=== PATIENT | male | born 1995 | race Hispanic/Latino ===

== ENCOUNTER 2020-02-19 11:31 | Emergency (ER) | payer OTHER, SELFPAY ==
[2020-02-19] MEDS ORDERED: NA CHLORIDE 0.9% 1,000 ML ONE (12:06)
[2020-02-19] MEDS ORDERED: CEFTRIAXONE/SWI 1gm 1 GM/10 ML SYR ONE (12:06)
[2020-02-19] MEDS ORDERED: KETOROLAC 30 MG/ML INJ ONE (12:06)
[2020-02-19] MEDS ORDERED: AZITHROMYCIN 250 MG TAB ONE (12:06)
[2020-02-19 12:21] LABS: Absolute Lymphocytes (CBC) 1.4 K/uL (0.7-4.9); Basophils % 0.7 % (0-1.3); Hematocrit 45.2 % (39.6-49.0); RBC Red Blood Cell Count 5.12 M/uL (4.33-5.43)
[2020-02-19 12:24] LABS: ALT/SGPT 45 U/L (12-78); AST/SGOT 21 U/L (15-37); Albumin 3.4 g/dL (3.4-5.0); Alkaline Phosphatase 91 U/L (45-117); BUN Blood Urea Nitrogen 17 mg/dL (7-18); Bicarbonate 28 mmol/L (21-32); Bilirubin Total 0.6 mg/dL (0.2-1.0); Glucose Level 136 mg/dL (74-106); Potassium 3.7 mmol/L (3.5-5.1); Protein, Total 8.2 g/dL (6.4-8.2); Sodium Level 141 mmol/L (136-145)
--- NOTE | 2020-02-19 12:38 | EDPHYS ---
Physician Documentation [facility] Name: Zack Nielsen Jr Age: 24 yrs Sex: Male : 1995 Arrival Date: 02/19/2020 Time: 11:31 Bed 5 Private MD: ED Physician Arturo Tarango HPI: 02/18 11:52 This 24 yrs old Male presents to ER via Ambulatory with complaints of estela Testicular Swelling. 11:52 The patient presents with scrotal pain, of the left side, swelling, tenderness. Onset: estela The symptoms/episode began/occurred 3 day(s) ago. Modifying factors: The symptoms are alleviated by remaining still, the symptoms are aggravated by movement, pressure. Associated signs and symptoms: The patient has no apparent associated signs or symptoms. Severity of symptoms: At their worst the symptoms were moderate, in the emergency department the symptoms are actually worse. The patient has not experienced similar symptoms in the past. Historical: - Allergies: 11:42 No Known Allergies; ll1 - PMHx: 11:42 psoriasis; ll1 - PSHx: 11:42 None; ll1 - Immunization history:: Flu vaccine is not up to date. - Social history:: Smoking status: Reported history of juuling and/or vaping. Patient/guardian denies using IV drugs. - Family history:: not pertinent. ROS: 11:52 Constitutional: Negative for fever, chills, and weight loss, Eyes: Negative for injury, estela pain, redness, and discharge, ENT: Negative for injury, pain, and discharge, Neck: Negative for injury, pain, and swelling, Cardiovascular: Negative for chest pain, palpitations, and edema, Respiratory: Negative for shortness of breath, cough, wheezing, and pleuritic chest pain, Abdomen/GI: Negative for abdominal pain, nausea, vomiting, diarrhea, and constipation, Back: Negative for injury and pain, MS/Extremity: Negative for injury and deformity, Skin: Negative for injury, rash, and discoloration, Neuro: Negative for headache, weakness, numbness, tingling, and seizure, Psych: Negative for depression, anxiety, suicide ideation, homicidal ideation, and hallucinations, Allergy/Immunology: Negative for hives, rash, and allergies, Endocrine: Negative for neck swelling, polydipsia, polyuria, polyphagia, and marked weight changes, Hematologic/Lymphatic: Negative for swollen nodes, abnormal bleeding, and unusual bruising. 11:52 : Positive for burning with urination, testicular pain of the left testicle. Exam: 11:52 Constitutional: This is a well developed, well nourished patient who is awake, alert, estela and in no acute distress. Head/Face: Normocephalic, atraumatic. Eyes: Pupils equal round and reactive to light, extra-ocular motions intact. Lids and lashes normal. Conjunctiva and sclera are non-icteric and not injected. Cornea within normal limits. Periorbital areas with no swelling, redness, or edema. ENT: Nares patent. No nasal discharge, no septal abnormalities noted. Tympanic membranes are normal and external auditory canals are clear. Oropharynx with no redness, swelling, or masses, exudates, or evidence of obstruction, uvula midline. Mucous membranes moist. Neck: Trachea midline, no thyromegaly or masses palpated, and no cervical lymphadenopathy. Supple, full range of motion without nuchal rigidity, or vertebral point tenderness. No Meningismus. Chest/axilla: Normal chest wall appearance and motion. Nontender with no deformity. No lesions are appreciated. Cardiovascular: Regular rate and rhythm with a normal S1 and S2. No gallops, murmurs, or rubs. Normal PMI, no JVD. No pulse deficits. Respiratory: Lungs have equal breath sounds bilaterally, clear to auscultation and percussion. No rales, rhonchi or wheezes noted. No increased work of breathing, no retractions or nasal flaring. Abdomen/GI: Soft, non-tender, with normal bowel sounds. No distension or tympany. No guarding or rebound. No evidence of tenderness throughout. Back: No spinal tenderness. No costovertebral tenderness. Full range of motion. Skin: Warm, dry with normal turgor. Normal color with no rashes, no lesions, and no evidence of cellulitis. MS/ Extremity: Pulses equal, no cyanosis. Neurovascular intact. Full, normal range of motion. Neuro: Awake and alert, GCS 15, oriented to person, place, time, and situation. Cranial nerves II-XII grossly intact. Motor strength 5/5 in all extremities. Sensory grossly intact. Cerebellar exam normal. Normal gait. Psych: Awake, alert, with orientation to person, place and time. Behavior, mood, and affect are within normal limits. 11:52 : CVA tenderness, is absent, Male external genitalia: Circumcision noted. swelling: tenderness, of the left testicle is noted, Sexual behavior: not applicable. Vital Signs: 11:37 BP 147 / 101; Pulse 117; Resp 22; Temp 97.6; Pulse Ox 92% ; Weight 199.58 kg; Height 6 ll1 ft. 0 in. (182.88 cm); Pain 8/10; 12:06 BP 153 / 91; Pulse 102; Resp 20; Pulse Ox 95% on R/A; tw2 12:48 BP 147 / 94; Pulse 94; Resp 17; Pulse Ox 95% on R/A; tw2 11:37 Body Mass Index 59.67 (199.58 kg, 182.88 cm) ll1 MDM: 11:40 Patient medically screened. [facility] 11:58 Data reviewed: vital signs, nurses notes, lab test result(s), radiologic studies, [facility] ultrasound. 02/18 11:42 Order name: CBC with Diff; Complete Time: 12:36 [facility] 02/18 11:42 Order name: Comprehensive Metabolic Panel; Complete Time: 12:36 [facility] 02/18 11:42 Order name: US Scrotum Testicles [facility] 02/18 11:42 Order name: Urine Culture [facility] 02/18 12:56 Order name: Urine Dipstick--Ancillary (enter results) 02/18 11:42 Order name: Urine Dipstick-Ancillary (obtain specimen); Complete Time: 12:59 [facility] Administered Medications: 11:59 Drug: Zithromax 1 grams Route: PO; tw2 12:58 Follow up: Response: No adverse reaction tw2 12:00 Drug: TORadol 30 mg Route: IVP; Site: right hand; tw2 12:58 Follow up: Response: No adverse reaction; Pain is decreased tw2 12:00 Drug: Rocephin 1 grams Route: IV; Rate: per protocol; Site: right hand; tw2 12:05 Follow up: Response: No adverse reaction; IV Status: Completed infusion tw2 12:02 Drug: NS 0.9% 1000 ml Route: IV; Rate: 1 bolus; Site: right hand; tw2 12:59 Follow up: Response: No adverse reaction; IV Status: Completed infusion; IV Intake: tw2 1000ml 12:47 Drug: Cipro 500 mg Route: PO; tw2 12:58 Follow up: Response: No adverse reaction tw2 Disposition: 02/19/20 12:37 Discharged to Home. Impression: Epididymo-orchitis. - Condition is Stable. - Discharge Instructions: Epididymitis, Orchitis. - Prescriptions for Ibuprofen 600 mg Oral Tablet - take 1 tablet by ORAL route every 6 hours As needed take with food; 30 tablet. Tylenol- Codeine #3 300-30 mg Oral Tablet - take 2 tablets by ORAL route every 6 hours As needed; 26 tablet. Cipro 500 mg Oral Tablet - take 1 tablet by ORAL route every 12 hours for 10 days; 20 tablet. - Medication Reconciliation Form, Thank You Letter, Antibiotic Education, Prescription Opioid Use form. - Follow up: Private Physician; When: 2 - 3 days; Reason: Recheck today's complaints, Continuance of care, Re-evaluation by your physician. Follow up: Aung Moyer MD; When: 2 - 3 days; Reason: Recheck today's complaints, Continuance of care, Re-evaluation by your physician. - Problem is new. - Symptoms have improved. Signatures: Dispatcher [employer] EDArturo Flores MD MD cha Wise, Tara RN RN tw2 Flora Jesus RN RN ll1 Corrections: (The following items were deleted from the chart) 13:00 12:37 02/19/2020 12:37 Discharged to Home. Impression: Epididymo-orchitis. Condition is tw2 Stable. Forms are Medication Reconciliation Form, Thank You Letter, Antibiotic Education, Prescription Opioid Use. Follow up: Private Physician; When: 2 - 3 days; Reason: Recheck today's complaints, Continuance of care, Re-evaluation by your physician. Follow up: Aung Moyer; When: 2 - 3 days; Reason: Recheck today's complaints, Continuance of care, Re-evaluation by your physician. Problem is new. Symptoms have improved. estela
--- NOTE | 2020-02-19 12:38 | ER ---
Nurse's Notes [facility] Name: Zack Nielsen Jr Age: 24 yrs Sex: Male : 1995 Arrival Date: 02/19/2020 Time: 11:31 Bed 5 Private MD: Diagnosis: Epididymo-orchitis Presentation: 02/18 11:37 Chief complaint: Patient states: Left testicular pain and swelling for 4 days. No ll1 fever. Coronavirus screen: Client denies travel out of the [place] in the last 14 days. At this time, the client does not indicate any symptoms associated with coronavirus-19. Ebola Screen: Patient denies travel to an Ebola-affected area in the 21 days before illness onset. Initial Sepsis Screen: Does the patient meet any 2 criteria? RR > 20 per min. HR > 90 bpm. Risk Assessment: Do you want to hurt yourself or someone else? Patient reports no desire to harm self or others. Onset of symptoms was February 16, 2020. 11:37 Method Of Arrival: Ambulatory ll1 11:37 Acuity: PATRICIA 2 ll1 Historical: - Allergies: 11:42 No Known Allergies; ll1 - PMHx: 11:42 psoriasis; ll1 - PSHx: 11:42 None; ll1 - Immunization history:: Flu vaccine is not up to date. - Social history:: Smoking status: Reported history of juuling and/or vaping. Patient/guardian denies using IV drugs. - Family history:: not pertinent. Screenin:03 Abuse screen: Denies threats or abuse. Nutritional screening: No deficits noted. tw2 Tuberculosis screening: No symptoms or risk factors identified. Fall Risk None identified. Assessment: 12:04 General: Appears in no apparent distress. obese, Behavior is calm, cooperative, tw2 appropriate for age. Pain: Complains of pain in left testicle. Neuro: Level of Consciousness is awake, alert, obeys commands, Oriented to person, place, time, situation. Cardiovascular: Heart tones S1 S2 Patient's skin is warm and dry. Respiratory: Airway is patent Respiratory effort is even, unlabored, Respiratory pattern is regular, symmetrical, Breath sounds are clear bilaterally. GI: No signs and/or symptoms were reported involving the gastrointestinal system. Abdomen is round non-distended, obese, Bowel sounds present X 4 quads. : Reports left scrotal pain. EENT: No signs and/or symptoms were reported regarding the EENT system. Derm: No signs and/or symptoms reported regarding the dermatologic system. Musculoskeletal: Range of motion: intact in all extremities. 12:05 Reassessment: US at bedside at this time. tw2 12:49 Reassessment: Patient appears in no apparent distress at this time. No changes from tw2 previously documented assessment. Patient and/or family updated on plan of care and expected duration. Pain level reassessed. Patient is alert, oriented x 3, equal unlabored respirations, skin warm/dry/pink. 13:00 Reassessment: Patient appears in no apparent distress at this time. No changes from tw2 previously documented assessment. Patient and/or family updated on plan of care and expected duration. Pain level reassessed. Patient is alert, oriented x 3, equal unlabored respirations, skin warm/dry/pink. Vital Signs: 11:37 BP 147 / 101; Pulse 117; Resp 22; Temp 97.6; Pulse Ox 92% ; Weight 199.58 kg; Height 6 ll1 ft. 0 in. (182.88 cm); Pain 8/10; 12:06 BP 153 / 91; Pulse 102; Resp 20; Pulse Ox 95% on R/A; tw2 12:48 BP 147 / 94; Pulse 94; Resp 17; Pulse Ox 95% on R/A; tw2 11:37 Body Mass Index 59.67 (199.58 kg, 182.88 cm) ll1 ED Course: 11:31 Patient arrived in ED. ds1 11:39 Triage completed. ll1 11:39 Arm band placed on Patient placed in an exam room, on a stretcher. ll1 11:40 Arturo Tarango MD is Attending Physician. estela 11:50 Elidia Jett RN is Primary Nurse. tw2 12:00 CBC with Diff Sent. mh5 12:00 Comprehensive Metabolic Panel Sent. mh5 12:00 Initial lab(s) drawn, by me, sent to lab. Inserted saline lock: 22 gauge in right hand, mh5 using aseptic technique. Blood collected. 12:01 Patient has correct armband on for positive identification. Placed in gown. Bed in low mh5 position. Call light in reach. Side rails up X 1. Warm blanket given. Pulse ox on. NIBP on. 12:34 US Scrotum Testicles In Process Unspecified. EDMS 12:34 Ultrasound completed. Patient tolerated well. Notified ED Physician dorian. sg3 12:37 Aung Moyer MD is Referral Physician. [facility] 12:59 Urine Culture Sent. tw2 12:59 No provider procedures requiring assistance completed. IV discontinued, intact, tw2 bleeding controlled, No redness/swelling at site. Pressure dressing applied. Administered Medications: 11:59 Drug: Zithromax 1 grams Route: PO; tw2 12:58 Follow up: Response: No adverse reaction tw2 12:00 Drug: TORadol 30 mg Route: IVP; Site: right hand; tw2 12:58 Follow up: Response: No adverse reaction; Pain is decreased tw2 12:00 Drug: Rocephin 1 grams Route: IV; Rate: per protocol; Site: right hand; tw2 12:05 Follow up: Response: No adverse reaction; IV Status: Completed infusion tw2 12:02 Drug: NS 0.9% 1000 ml Route: IV; Rate: 1 bolus; Site: right hand; tw2 12:59 Follow up: Response: No adverse reaction; IV Status: Completed infusion; IV Intake: tw2 1000ml 12:47 Drug: Cipro 500 mg Route: PO; tw2 12:58 Follow up: Response: No adverse reaction tw2 Intake: 12:59 IV: 1000ml; Total: 1000ml. tw2 Outcome: 12:37 Discharge ordered by . [facility] 12:59 Discharged to home ambulatory. tw2 12:59 Condition: stable 12:59 Discharge instructions given to patient, Instructed on discharge instructions, follow up and referral plans. no drinking with medication, no driving heavy equipment, medication usage, Demonstrated understanding of instructions, follow-up care, medications, Prescriptions given X 3. 13:00 Patient left the ED. tw2 Signatures: Dispatcher [employer] EDMS Arturo Tarango MD MD cha Sanford, Demi ds1 Elidia Jett RN RN tw2 Laly Lr [facility] Mignon Low sg3 Flora Jesus RN RN ll1
[2020-02-19] MEDS ORDERED: CIPROFLOXACIN HCL 500 MG TAB ONE (13:00)
[2020-02-19 13:09] VITALS: TEMP 97.6
[2020-02-19 13:11] VITALS: O2SAT 95
[2020-02-19 13:12] VITALS: BP 147/94
[2020-02-19 13:15] LABS: Urine Blood TRACE (NEG); Urine Glucose NEGATIVE (NEG); Urine Protein 1+ (NEG); Urine Specific Gravity 1.025 (1.005-1.030); Urine pH 5.5 (5.0-7.0)
--- NOTE | 2020-02-19 13:17 | RAD REPORT ---
EXAM DESCRIPTION: US - Scrotum Testicles - 02/19/2020 12:36 pm CLINICAL HISTORY: PAIN Preliminary findings provided at the time of the study. COMPARISON: No comparisons FINDINGS: Left testicle is somewhat heterogeneous when compared to the right but a discrete or focal left testicular mass is not identifiable. No focal lesion of the right testicle. Doppler evaluation shows increased flow to the left testicle relative to the right. The left epididymis is enlarged and hyperemic relative to the right. A few incidental small epididymal cysts are present. Patient has hydrocele with numerous echogenic strands extending through the fluid. No abscess or drai nable fluid collections seen. Scrotal wall appears thickened and edematous. IMPRESSION: Left epididymo-orchitis pattern is evident with no focal lesion of the testicle seen. Loculated left side hydrocele.
== END 2020-02-19 13:00 | disposition home or self-care (01) ==
LOC: ER 11:31
DX: N45.3 Epididymo-orchitis (principal)
CPT/HCPCS: 36415; 76870; 80053; 81003; 85025; 87086; 87088; 96361; 96374; 96375; 99284; J0696; J7030

== ENCOUNTER 2021-03-24 22:52 | Inpatient (IN) | payer SELFPAY ==
[2021-03-24 23:57] LABS: Absolute Lymphocytes (CBC) 0.9 K/uL (0.7-4.9); Basophils % 0.3 % (0-1.3); Hematocrit 47.3 % (39.6-49.0); Lymphocytes % 6.9 % (15.3-44.8); MPV 8.5 fL (7.6-11.3); RBC Red Blood Cell Count 5.35 M/uL (4.33-5.43)
[2021-03-24 23:59] LABS: Protime INR 1.25
[2021-03-25 00:16] LABS: ALT/SGPT 48 U/L (12-78); AST/SGOT 19 U/L (15-37); Albumin 3.6 g/dL (3.4-5.0); Alkaline Phosphatase 82 U/L (45-117); Amylase 19 U/L (25-115); BUN Blood Urea Nitrogen 14 mg/dL (7-18); Bicarbonate 25 mmol/L (21-32); Bilirubin Direct 0.2 mg/dL (0-0.2); Bilirubin Total 0.8 mg/dL (0.2-1.0); Creatine Phosphokinase 73 U/L (39-308); Glucose Level 156 mg/dL (74-106); Lipase 52 U/L (73-393); Potassium 3.5 mmol/L (3.5-5.1); Protein, Total 8.1 g/dL (6.4-8.2); Sodium Level 137 mmol/L (136-145); Troponin (Emerg Dept Use Only) < 0.02 ng/mL (0.0-0.045)
[2021-03-25] MEDS ORDERED: ACETAMINOPHEN 500 MG TAB ONE (00:16)
[2021-03-25] MEDS ORDERED: MORPHINE 4 MG/ML SYR ONE (00:17)
[2021-03-25] MEDS ORDERED: ONDANSETRON 4 MG/2 ML VIAL ONE (00:17)
[2021-03-25] MEDS ORDERED: NA CHLORIDE 0.9% 1,000 ML ONE ×3 (00:17→05:45)
[2021-03-25] MEDS ORDERED: CLINDAMYCIN 900MG/D5W 900 MG/50 ML IVPB IV ONE (00:17)
[2021-03-25 00:23] LABS: CKMB Creatine Kinase MB < 1.0 ng/mL (1.0-3.6)
--- NOTE | 2021-03-25 00:52 | ER ---
Nurse's Notes [facility] Name: Zack Nielsen Jr Age: 25 yrs Sex: Male : 1995 Arrival Date: 03/24/2021 Time: 22:57 Bed 23 Private MD: Diagnosis: Right lower extremity cellulitis, sepsis Presentation: 03/24 23:07 Chief complaint: Patient states: redness, swelling to right lower leg x 2 days, reports lp1 pain to right groin x 2 days;. Coronavirus screen: congestion, fatigue, fever, shortness of breath. Ebola Screen: No symptoms or risks identified at this time. Initial Sepsis Screen: Does the patient meet any 2 criteria? Temp <36.0*C (96.8*F)) or > 38.3*C (100.9*F). HR > 90 bpm. Does the patient have a suspected source of infection? Yes: Other: unknown. Risk Assessment: Do you want to hurt yourself or someone else? Patient reports no desire to harm self or others. Onset of symptoms was March 24, 2021. 23:07 Method Of Arrival: Ambulatory lp1 23:07 Acuity: PATRICIA 2 lp1 Triage Assessment: 23:35 Bite description: bite sustained to right leg by possible spider. General: Appears in sj1 no apparent distress. Behavior is calm, cooperative, appropriate for age. 23:36 Bite description: animal information: vaccination(s) is not applicable. sj1 Historical: - Allergies: 23:10 No Known Allergies; lp1 - Home Meds: 23:11 talze [Active]; lp1 - PMHx: 23:10 psoriasis; lp1 23:11 Hypertensive disorder; lp1 - PSHx: 23:10 None; lp1 - Immunization history:: Adult Immunizations up to date, Client reports having NOT received the Covid vaccine. - Social history:: Smoking status: Patient reports the use of cigarette tobacco products, denies chronic smoking, but will smoke occasionally. Screenin:10 Abuse screen: Denies threats or abuse. Denies injuries from another. Nutritional lp1 screening: No deficits noted. Tuberculosis screening: No symptoms or risk factors identified. Fall Risk None identified. Assessment: 23:48 Pain: Complains of pain in rt leg and gen body aches. Derm: Skin is redness to rt lower sj1 ext. 03/25 03:13 Neuro: No deficits noted. Cardiovascular: No deficits noted. Respiratory: No deficits sj1 noted. GI: No deficits noted. Derm: Skin is intact, Skin is. Musculoskeletal: Reports gen body aches. Vital Signs: 03/24 23:07 BP 156 / 75; Pulse 143; Resp 20; Temp 102.3(O); Pulse Ox 99% on R/A; Weight 226.8 kg lp1 (R); Height 6 ft. 0 in. (182.88 cm); Pain 3/10; 03/25 00:25 BP 160 / 99 RA Sitting (/lg); Pulse 122; Resp 18 S; Pulse Ox 94% on R/A; Pain 3/10; sj1 01:10 BP 141 / 68 LA Sitting (auto/lg); Pulse 101; Resp 18 S; Temp 99.3(O); Pulse Ox 96% on sj1 R/A; Pain 0/10; 03/24 23:07 Body Mass Index 67.81 (226.80 kg, 182.88 cm) lp1 ED Course: 03/24 22:57 Patient arrived in ED. ja2 23:10 Triage completed. lp1 23:10 Arm band placed on right wrist. lp1 23:15 Jesus Cutler MD is Attending Physician. 7 23:31 Amylase, Serum Sent. sj1 23:31 Basic Metabolic Panel Sent. sj1 23:31 Blood Culture Adult (2) Sent. sj1 23:31 CBC with Diff Sent. sj1 23:31 CPK Sent. sj1 23:31 Ckmb Sent. sj1 23:31 LFT's Sent. sj1 23:31 Lactate Sent. sj1 23:31 Lipase Sent. sj1 23:31 Procalcitonin Sent. sj1 23:31 Protime (+inr) Sent. sj1 23:31 Ptt, Activated Sent. sj1 23:31 Troponin (emerg Dept Use Only) Sent. sj1 23:48 Chest Single View XRAY In Process Unspecified. EDMS 23:48 Chest Single View XRAY Sent. sj1 23:48 No provider procedures requiring assistance completed. Inserted saline lock: 20 gauge sj1 in right hand, using aseptic technique. Blood collected. 03/25 00:11 Extremity Venous Unilateral Ltd Sent. sj1 00:26 Patient has correct armband on for positive identification. sj1 00:51 Michele Church DO is Hospitalizing Provider. mh7 01:39 Influenza Screen (a \T\ B) Sent. sj1 Administered Medications: 00:09 Drug: morphine 4 mg Route: IVP; Site: right hand; sj1 05:42 Follow up: Response: No adverse reaction sj1 00:09 Drug: Zofran (Ondansetron) 4 mg Route: IVP; Site: right hand; sj1 05:41 Follow up: Response: No adverse reaction sj1 00:09 Drug: Clindamycin 900 mg Route: IVPB; Infused Over: 30 mins; Site: right hand; sj1 00:44 Follow up: Response: No adverse reaction sj1 00:09 Drug: NS 0.9% 1000 ml Route: IV; Rate: 1000 ml; Site: right hand; sj1 01:39 Follow up: IV Status: Completed infusion; IV Intake: 1000ml sj1 00:10 Drug: Tylenol 1000 mg Route: PO; sj1 01:11 Follow up: Response: No adverse reaction; Temperature is decreased sj1 01:00 Drug: Cefepime 1 grams Route: IVPB; Rate: 200 ml/hr; Infused Over: 30 mins; Site: right sj1 hand; 01:39 Follow up: IV Status: Completed infusion; IV Intake: 100ml sj1 01:00 Drug: NS 0.9% 1000 ml Route: IV; Rate: 1000 ml; Site: right hand; sj1 01:45 Drug: vancoMYCIN 2 grams Route: IVPB; Rate: calculated rate; Site: right hand; sj1 05:41 Follow up: IV Status: Completed infusion; IV Intake: 500ml sj1 Intake: 01:39 IV: 100ml; Total: 100ml. sj1 01:39 IV: 1000ml; Total: 1100ml. sj1 05:41 IV: 500ml; Total: 1600ml. sj1 Outcome: 00:51 Decision to Hospitalize by Provider. 7 14:01 Patient left the ED. aa5 Signatures: Dispatcher [employer] EDMS Kaye Madison RN RN aa5 Annie Jacome RN RN lp1 Jesus Cutler MD MD 7 Eileen Chino Sade, RN RN sj1 Corrections: (The following items were deleted from the chart) 03/24 23:11 23:10 [place] Meds: None; lp1 lp1
--- NOTE | 2021-03-25 00:52 | EDPHYS ---
Physician Documentation [facility] Name: Zack Nielsen Jr Age: 25 yrs Sex: Male : 1995 Arrival Date: 03/24/2021 Time: 22:57 Bed 23 Private MD: ED Physician Jesus Cutler HPI: 03/24 23:30 This 25 yrs old Male presents to ER via Ambulatory with complaints of Insect mh7 Bite. 23:30 The patient presents with a bite, by an insect, pain, that is acute, swelling. The mh7 complaints affect the right leg. Context: The problem was sustained at an unknown site, resulted from Possible insect bite, the patient can fully bear weight, the patient is able to ambulate, with mild difficulty. Onset: The symptoms/episode began/occurred 2 day(s) ago. Modifying factors: The symptoms are alleviated by nothing. the symptoms are aggravated by movement, weight bearing. Associated signs and symptoms: Pertinent positives: fever, warmth, Pertinent negatives nausea, numbness, rash, tingling, vomiting, weakness. Treatment prior to arrival includes: no previous treatment. Severity of symptoms: At their worst the symptoms were moderate, 2 day(s) ago, in the emergency department the symptoms are unchanged. Historical: - Allergies: 23:10 No Known Allergies; lp1 - Home Meds: 23:11 talze [Active]; lp1 - PMHx: 23:10 psoriasis; lp1 23:11 Hypertensive disorder; lp1 - PSHx: 23:10 None; lp1 - Immunization history:: Adult Immunizations up to date, Client reports having NOT received the Covid vaccine. - Social history:: Smoking status: Patient reports the use of cigarette tobacco products, denies chronic smoking, but will smoke occasionally. ROS: 23:30 Eyes: Negative for injury, pain, redness, and discharge, ENT: Negative for injury, mh7 pain, and discharge, Neck: Negative for injury, pain, and swelling, Cardiovascular: Negative for chest pain, palpitations, and edema, Abdomen/GI: Negative for abdominal pain, nausea, vomiting, diarrhea, and constipation. 23:30 Back: Negative for injury and pain, : Negative for injury, bleeding, discharge, and swelling, Neuro: Negative for headache, weakness, numbness, tingling, and seizure, Psych: Negative for depression, anxiety, suicide ideation, homicidal ideation, and hallucinations, Allergy/Immunology: Negative for hives, rash, and allergies, Endocrine: Negative for neck swelling, polydipsia, polyuria, polyphagia, and marked weight changes, Hematologic/Lymphatic: Negative for swollen nodes, abnormal bleeding, and unusual bruising. Exam: 23:30 Constitutional: This is a well developed, well nourished patient who is awake, alert, mh7 and in no acute distress. Head/Face: Normocephalic, atraumatic. Eyes: Pupils equal round and reactive to light, extra-ocular motions intact. Lids and lashes normal. Conjunctiva and sclera are non-icteric and not injected. Cornea within normal limits. Periorbital areas with no swelling, redness, or edema. Neck: Trachea midline, no thyromegaly or masses palpated, and no cervical lymphadenopathy. Supple, full range of motion without nuchal rigidity, or vertebral point tenderness. No Meningismus. Chest/axilla: Normal chest wall appearance and motion. Nontender with no deformity. No lesions are appreciated. 23:30 Respiratory: Lungs have equal breath sounds bilaterally, clear to auscultation and percussion. No rales, rhonchi or wheezes noted. No increased work of breathing, no retractions or nasal flaring. Abdomen/GI: Soft, non-tender, with normal bowel sounds. No distension or tympany. No guarding or rebound. No evidence of tenderness throughout. Back: No spinal tenderness. No costovertebral tenderness. Full range of motion. Neuro: Awake and alert, GCS 15, oriented to person, place, time, and situation. Cranial nerves II-XII grossly intact. Motor strength 5/5 in all extremities. Sensory grossly intact. Cerebellar exam normal. Normal gait. Psych: Awake, alert, with orientation to person, place and time. Behavior, mood, and affect are within normal limits. 23:30 Cardiovascular: Rate: tachycardic, Rhythm: regular, Pulses: no pulse deficits are appreciated, Heart sounds: normal, normal S1and S2, Edema: is not appreciated, JVD: is not appreciated. 23:30 Musculoskeletal/extremity: Extremities: noted in the right leg: erythema, pain, mh7 tenderness, ROM: intact in all extremities, Circulation is intact in all extremities. Sensation intact. Compartment Syndrome exam of affected extremity: is normal. no numbness, no tingling, no sensation deficit, no palor, no weak pulses, Joints: All joints appear normal with full range of motion. Weight bearing: able to fully bear weight, Tendon exam: specific tendon testing normal through active and passive range of motion DVT Exam: pain, that is mild, of the right leg, tenderness, that is mild, of the right leg, erythema, that is moderate, of the right leg, increased warmth, that is moderate, of the right leg. 23:30 Skin: cellulitis, that is moderate, confluent, on the right leg. [facility] Vital Signs: 23:07 BP 156 / 75; Pulse 143; Resp 20; Temp 102.3(O); Pulse Ox 99% on R/A; Weight 226.8 kg lp1 (R); Height 6 ft. 0 in. (182.88 cm); Pain 3/10; 03/25 00:25 BP 160 / 99 RA Sitting (/lg); Pulse 122; Resp 18 S; Pulse Ox 94% on R/A; Pain 3/10; sj1 01:10 BP 141 / 68 LA Sitting (auto/lg); Pulse 101; Resp 18 S; Temp 99.3(O); Pulse Ox 96% on sj1 R/A; Pain 0/10; 03/24 23:07 Body Mass Index 67.81 (226.80 kg, 182.88 cm) 1 MDM: 00:50 Differential diagnosis: contusion, abrasion, tendonitis, Cellulitis, insect bite, DVT. [facility] Data reviewed: vital signs, nurses notes, lab test result(s), CBC, electrolytes, EKG, radiologic studies, plain films, ultrasound. Data interpreted: Pulse oximetry: on room air is 94 %. Interpretation: normal. Counseling: I had a detailed discussion with the patient and/or guardian regarding: the historical points, exam findings, and any diagnostic results supporting the discharge/admit diagnosis, the presence of at least one elevated blood pressure reading (>120/80) during this emergency department visit, lab results, radiology results, the need for further work-up and treatment in the hospital. Response to treatment: the patient's symptoms have mildly improved after treatment. 00:51 Patient medically screened. [facility] 03/24 23:20 Order name: Amylase, Serum lp1 10/16 23:20 Order name: Basic Metabolic Panel; Complete Time: 00:26 [facility] 03/24 23:20 Order name: Blood Culture Adult (2) [facility] 03/24 23:20 Order name: CBC with Diff; Complete Time: 00:26 [facility] 03/24 23:20 Order name: CPK; Complete Time: 00:26 [facility] 03/24 23:20 Order name: Ckmb; Complete Time: 00:26 [facility] 03/24 23:20 Order name: LFT's; Complete Time: 00:26 [facility] 03/24 23:20 Order name: Lactate; Complete Time: 00:26 [facility] 03/24 23:20 Order name: Lipase; Complete Time: 00:26 [facility] 03/24 23:20 Order name: Procalcitonin; Complete Time: 02:07 [facility] 03/24 23:20 Order name: Protime (+inr); Complete Time: 00:26 [facility] 03/24 23:20 Order name: Ptt, Activated; Complete Time: 00:26 [facility] 03/24 23:20 Order name: Troponin (emerg Dept Use Only); Complete Time: 00:26 [facility] 03/24 23:20 Order name: Urine Microscopic Only [facility] 03/24 23:20 Order name: Chest Single View XRAY [facility] 03/24 23:20 Order name: Amylase; Complete Time: 00:26 [facility] 03/24 23:38 Order name: Influenza Screen (a \T\ B); Complete Time: 02:07 [facility] 03/24 23:38 Order name: US Extremity Venous Unilateral Ltd [facility] 03/24 23:51 Order name: SARS-COV-2 RT PCR; Complete Time: 00:49 [facility] 03/24 23:51 Order name: Glucose, Ancillary Testing; Complete Time: 02:07 [facility] 03/25 02:22 Order name: Group A Streptococcus Rapid Sc; Complete Time: 02:37 [facility] 03/25 06:25 Order name: CBC with Automated Diff [facility] 03/25 07:02 Order name: Hemoglobin A1c [facility] 03/25 07:14 Order name: Comprehensive Metabolic Panel [facility] 03/25 07:14 Order name: Lipid Profile [facility] 03/25 07:14 Order name: T4 Free [facility] 03/25 07:14 Order name: Thyroid Stimulating Hormone [facility] 03/25 07:48 Order name: Procalcitonin [facility] 03/24 23:20 Order name: Accucheck; Complete Time: 23:47 [facility] 03/24 23:20 Order name: Cardiac monitoring; Complete Time: 23:31 [facility] 03/24 23:20 Order name: EKG - Nurse/Tech; Complete Time: 23:31 [facility] 03/24 23:20 Order name: IV Saline Lock - Large Bore; Complete Time: 23:31 [facility] 03/24 23:20 Order name: Labs collected and sent; Complete Time: 23:31 1 03/24 23:20 Order name: O2 Per Protocol; Complete Time: 23:31 [facility] 03/24 23:20 Order name: O2 Sat Monitoring; Complete Time: 23:31 [facility] 03/25 09:39 Order name: US [facility] Administered Medications: 00:09 Drug: morphine 4 mg Route: IVP; Site: right hand; sj1 05:42 Follow up: Response: No adverse reaction sj1 00:09 Drug: Zofran (Ondansetron) 4 mg Route: IVP; Site: right hand; sj1 05:41 Follow up: Response: No adverse reaction sj1 00:09 Drug: Clindamycin 900 mg Route: IVPB; Infused Over: 30 mins; Site: right hand; sj1 00:44 Follow up: Response: No adverse reaction sj1 00:09 Drug: NS 0.9% 1000 ml Route: IV; Rate: 1000 ml; Site: right hand; sj1 01:39 Follow up: IV Status: Completed infusion; IV Intake: 1000ml sj1 00:10 Drug: Tylenol 1000 mg Route: PO; sj1 01:11 Follow up: Response: No adverse reaction; Temperature is decreased sj1 01:00 Drug: Cefepime 1 grams Route: IVPB; Rate: 200 ml/hr; Infused Over: 30 mins; Site: right sj1 hand; 01:39 Follow up: IV Status: Completed infusion; IV Intake: 100ml sj1 01:00 Drug: NS 0.9% 1000 ml Route: IV; Rate: 1000 ml; Site: right hand; sj1 01:45 Drug: vancoMYCIN 2 grams Route: IVPB; Rate: calculated rate; Site: right hand; sj1 05:41 Follow up: IV Status: Completed infusion; IV Intake: 500ml 1 Disposition Summary: 03/25/21 00:51 Hospitalization Ordered Hospitalization Status: Inpatient Admission [facility] Provider: Michele Church Condition: Stable [facility] Problem: new mh7 Symptoms: have improved mh7 Bed/Room Type: Standard [facility] Location: Telemetry/MedSurg (Inpatient)(03/25/21 12:49) [facility] Room Assignment: 424(03/25/21 13:28) eb Diagnosis - Right lower extremity cellulitis, sepsis [facility] Forms: - Medication Reconciliation Form 7 - SBAR form [facility] Signatures: Dispatcher [employer] EDMS Annie Jacome, RN RN lp1 See Lou, COMPUTER SYSTEMS ANALYST-C COMPUTER SYSTEMS ANALYST-Cla1 Kassy Seals, RN RN Peter Santamaria RN RN ja1 Barbara Rasheed Maurice, MD MD 7 Carolin Bird RN RN sj1 Corrections: (The following items were deleted from the chart) 03/24 23:11 23:10 Home Meds: None; 1 lp1 23:51 23:34 CORONAVIRUS+MR.LAB.BRZ ordered. [facility] ED[facility] 03/25 00:56 00:51 Telemetry/MedSurg (Inpatient) mh7 cg 00:56 00:51 mh7 cg 12:21 00:56 [facility] ER HOLD cg ja1 12:21 00:56 ERHOLD- cg ja1 12:49 12:21 Intensive Care Unit ja1 ja1 12:49 12:21 8- ja1 ja1 13:28 12:49 ja1 eb
--- NOTE | 2021-03-25 00:53 | P.HP ---
Certification for Inpatient Patient admitted to: Inpatient With expected LOS: >2 Midnights Patient will require the following post-hospital care: None Practitioner: I am a practitioner with admitting privileges, knowledge of patient current condition, hospital course, and medical plan of care. Services: Services provided to patient in accordance with Admission requirements found in Title 42 Section 412.3 of the Code of Federal Regulations Patient History Date of Service: 03/25/21 Primary Care Provider: Unknown Reason for admission: Cellulitis right lower extremity History of Present Illness: 25-year-old male with history of hypertension, morbid obesity presents emergency department for right lower extremity redness, fever. Patient reports symptoms began 2 days ago, does have a history of psoriasis as well. Patient is on immunologic therapy for psoriasis. Patient was evaluated in the emergency department labs were significant for white blood cell count 13.2 with left shift glucose 156 Covid negative DVT negative right lower extremity. Patient with significant cellulitis, tachycardia, fever and on immunologic therapy, will admit for further evaluation and management. - Past Medical/Surgical History -: Morbid obesity -: Psoriasis -: Hypertension -: None Psychosocial/ Personal History: Unemployed, lives at home with his parents - Family History Mother -: Hypertension Father -: Hypertension, Diabetes - Social History Smoking Status: Never smoker Alcohol use: Yes CD- Drugs: No Caffeine use: Yes Place of Residence: Home Review of Systems General: Fever, Chills, Weakness, Malaise Musculoskeletal: Leg Pain Integumentary: Other (Erythema, cellulitis right lower extremity), As per HPI Physical Examination - Physical Exam General: Alert, In no apparent distress, Oriented x3, Obese HEENT: Atraumatic Neck: Supple Respiratory: Clear to auscultation bilaterally Cardiovascular: No edema, Normal S1 S2, Irregular heart rate/rhythm (Sinus tachycardia rate 120) Capillary refill: <2 Seconds Gastrointestinal: Normal bowel sounds, Soft and benign Integumentary: Tenderness/swelling, Erythema, Warmth Neurological: Normal speech, Normal strength at 5/5 x4 extr, Normal tone - Studies Laboratory Data (last 24 hrs) 03/24/21 23:26: PT 14.4 H, INR 1.25, APTT 33.6 03/24/21 23:26: WBC 13.20 H, Hgb 15.7, Hct 47.3, Plt Count 255 10/16/21 23:26: Sodium 137, Potassium 3.5, BUN 14, Creatinine 1.08, Glucose 156 H, Total Bilirubin 0.8, AST 19, ALT 48, Alkaline Phosphatase 82, Amylase 19 L, Lipase 52 L Assessment and Plan - Plan Assessment: Sepsis without severe sepsis or septic shock secondary to cellulitis of the right lower extremity complicated with history of psoriasis on biologic therapy Hypertension Hyperglycemia Plan: Sepsis without severe sepsis or septic shock secondary to cellulitis of the right lower extremity complicated with history of psoriasis on biologic therapy: Continue with vancomycin, Levaquin, IV fluids. Negative for DVT and has been clinical improvement over the course of the next 48 to 72 hours. Hypertension: Initiated therapy with lisinopril 10 mg daily, titrate as needed to control blood pressure. Patient need to follow-up with primary care doctor to further address. Hyperglycemia: Strong family history of diabetes, blood sugar mildly elevated will obtain A1c level. DVT PPX: Lovenox Code status: Full Discharge Plan: Home Plan to discharge in: Greater than 2 days - Advance Directives Does patient have a Living Will: No Does patient have a Durable POA for Healthcare: No - Code Status/Comfort Care Code Status Assessed: Yes (Full code) Critical Care: No Time Spent Managing Pts Care (In Minutes): 55
[2021-03-25] MEDS ORDERED: CEFEPIME 1 GM/VIAL ONE (01:19)
[2021-03-25] MEDS ORDERED: NA CHLORIDE 0.9% 100 ML ONE (01:19)
[2021-03-25] MEDS ORDERED: NA CHLORIDE 0.9% 500 ML ONE (01:19)
[2021-03-25] MEDS ORDERED: VANCOMYCIN 1 GM/VIAL ONE (01:19)
--- NOTE | 2021-03-25 02:15 | P.INFCA ---
Sepsis Focused Assessment - Focused Assessment Complete? Sepsis Focused Assessment Completed?: Yes - Sepsis Screen Result Severe Sepsis: Negative Septic Shock: Negative - Evaluation Current stage of sepsis: Resolved - Vital Signs Reviewed: Yes Temperature: 99 F Heart rate: 110 Blood Pressure: 145/90 Respiratory Rate: 18 O2 Sat by Pulse Oximetry: 100 - Examination Date exam was performed: 03/25/21 Time exam was performed: 02:14 Heart: S1, S2, Tachycardia Lungs: Clear bilaterally Peripheral pulses: 3+ Normal Peripheral pulse location: Radial Capillary refill: <2 Seconds Skin examination: Normal turgor
[2021-03-25 03:13] VITALS: BMI 67.8
[2021-03-25] MEDS ORDERED: VANCOMYCIN/NS 1 gm 1 GM/250 ML BAG IVPB SCH (04:58)
[2021-03-25] MEDS ORDERED: ACETAMINOPHEN 500 MG TAB PO PRN (04:58)
[2021-03-25] MEDS ORDERED: ONDANSETRON 4 MG/2 ML VIAL IV PRN (04:58)
[2021-03-25] MEDS: NA CHLORIDE 0.9% 1,000 ML IV SCH ×2 (04:58→15:11)
[2021-03-25] MEDS ORDERED: Levofloxacin500mg IV 500 MG/100 ML BAG IV SCH (05:00)
[2021-03-25] MEDS ORDERED: Levofloxacin500mg IV 500 MG/100 ML BAG IV ONE (05:45)
--- NOTE | 2021-03-25 06:16 | P.PN ---
Subjective Date of Service: 03/25/21 Primary Care Provider: Unknown Chief Complaint: Cellulitis right lower extremity Subjective: Improving Physical Examination - Vital Signs Temperature: 98.7 F Blood Pressure: 159/76 Pulse: 92 Respirations: 18 Pulse Ox (%): 95 - Studies Laboratory Data (last 24 hrs) 03/24/21 23:26: PT 14.4 H, INR 1.25, APTT 33.6 03/24/21 23:26: WBC 13.20 H, Hgb 15.7, Hct 47.3, Plt Count 255 03/24/21 23:26: Sodium 137, Potassium 3.5, BUN 14, Creatinine 1.08, Glucose 156 H, Total Bilirubin 0.8, AST 19, ALT 48, Alkaline Phosphatase 82, Amylase 19 L, Lipase 52 L Microbiology Data (last 24 hrs): 03/24/21 01:34 Nasopharnyx Influenza Type A Antigen Screen - Final 03/24/21 01:34 Nasopharnyx Influenza Type B Antigen Screen - Final Assessment & Plan Discharge Plan: Home Plan to discharge in: 48 Hours Physician Review Additional Text: COVID: negative Venous doppler: COMPARISON: None. FINDINGS: Right common femoral, superficial femoral, popliteal and right posterior tibial veins are compressible and demonstrate augmentation. Doppler demonstrates good flow. 2 x 3 centimeter lower right inguinal lymph node IMPRESSION: No evidence of deep venous thrombosis involving the right lower extremity. 2 x 3 centimeter lower right inguinal lymph node is nonspecific. A followup ultrasound in couple months recommended to assess stability/resolution Physical exam: General: Alert, In no apparent distress, Oriented x3, Obese HEENT: Atraumatic Neck: Supple Respiratory: Clear to auscultation bilaterally Cardiovascular: Regular rate and rhythm Capillary refill: <2 Seconds Gastrointestinal: Normal bowel sounds, Soft and benign Integumentary: Tenderness/swelling, Erythema, Warmth to the right lower extremity. Patient with psoriasis. Neurological: Normal speech, Normal strength at 5/5 x4 extr, Normal tone Impression: Sepsis without severe sepsis or septic shock secondary to cellulitis of the right lower extremity complicated with history of psoriasis on biologic therapy Hypertension Hyperglycemia Incidental 2 x 3 cm lower right inguinal lymph node noted Morbid obesity, BMI greater than 67 Plan: Sepsis without severe sepsis or septic shock secondary to cellulitis of the right lower extremity complicated with history of psoriasis on biologic therapy: Venous Doppler negative. Continue IV vancomycin and Levaquin. Anticipate continued improvement. Likely discharge as early as tomorrow or the next day. I will turn the service over to the hospitalist team tomorrow. I will go plan of care with him. Hypertension: Blood pressure elevated. Will start lisinopril 10 mg daily. Further adjustment can be done by hospitalists. This will need to be followed up as an outpatient. Hyperglycemia with prediabetes: Hemoglobin A1c 6.3. Patient with prediabetes. Education provided. Recommend to recheck hemoglobin A1c every 3 to 6 months to monitor his progress. Incidental 2 x 3 cm lower right inguinal lymph node noted: This was noted on venous Doppler. Recommend recheck ultrasound in 1 to 3 months to monitor stability. This can be done as an outpatient with PCP. Morbid obesity, BMI greater than 67: We will address lifestyle modification education. DVT PPX: Lovenox Code status: Full Discharge Plan: Home Time Spent Managing Pts Care (In Minutes): 55
[2021-03-25 06:21] LABS: Absolute Lymphocytes (CBC) 1.3 K/uL (0.7-4.9); Basophils % 0.7 % (0-1.3); Hematocrit 41.3 % (39.6-49.0); Lymphocytes % 13.2 % (15.3-44.8); MPV 8.7 fL (7.6-11.3)
[2021-03-25 07:11] LABS: ALT/SGPT 34 U/L (12-78); AST/SGOT 17 U/L (15-37); Alkaline Phosphatase 69 U/L (45-117); BUN Blood Urea Nitrogen 14 mg/dL (7-18); Bicarbonate 26 mmol/L (21-32); Bilirubin Total 0.8 mg/dL (0.2-1.0); Glucose Level 135 mg/dL (74-106); HDL Cholesterol 30 mg/dL (40-60); LDL Cholesterol, Calculated 101 (<130); Potassium 3.5 mmol/L (3.5-5.1); Protein, Total 6.8 g/dL (6.4-8.2); Sodium Level 140 mmol/L (136-145)
[2021-03-25] MEDS: ENOXAPARIN 40 MG/0.4 ML SQ SCH (07:54)
[2021-03-25] MEDS ORDERED: lisinopriL 10 MG TAB ONE (08:00)
[2021-03-25] MEDS ORDERED: ENOXAPARIN 40 MG/0.4 ML SQ ONE (08:00)
[2021-03-25] MEDS: lisinopriL 10 MG TAB PO SCH (08:02)
--- NOTE | 2021-03-25 09:34 | RAD REPORT ---
EXAM DESCRIPTION: [place] Single View03/24/2021 11:48 pm CLINICAL HISTORY: sob COMPARISON: none FINDINGS: The lungs appear clear of acute infiltrate. The heart is normal size IMPRESSION: No acute abnormalities displayed
--- NOTE | 2021-03-25 09:38 | RAD REPORT ---
EXAM DESCRIPTION: USExtremity Venous Uni Ltd03/25/2021 1:02 am CLINICAL HISTORY: Right leg pain and swelling. COMPARISON: None. FINDINGS: Right common femoral, superficial femoral, popliteal and right posterior tibial veins are compressible and demonstrate augmentation. Doppler demonstrates good flow. 2 x 3 centimeter lower right inguinal lymph node IMPRESSION: No evidence of deep venous thrombosis involving the right lower extremity. 2 x 3 centimeter lower right inguinal lymph node is nonspecific. A followup ultrasound in couple sapna hs recommended to assess stability/resolution
[2021-03-25] MEDS: VANCOMYCIN 2 GM in NA CHLORIDE 0.9% 500 ML IVPB SCH ×2 (10:25→21:00)
[2021-03-25] MEDS: HYDROCODONE/APAP 5/325 MG TAB PO PRN ×2 (13:43→22:35)
[2021-03-25] MEDS ORDERED: VANCOMYCIN 2 GM in NA CHLORIDE 0.9% 500 ML IVPB SCH (14:00)
[2021-03-25] MEDS ORDERED: HYDROCODONE/APAP 5/325 MG TAB ONE (14:09)
[2021-03-25] MEDS ORDERED: POTASSIUM CL SA 10 MEQ TAB PO ONE (14:55)
[2021-03-25 22:01] VITALS: O2SAT 96
[2021-03-26] MEDS: NA CHLORIDE 0.9% 1,000 ML IV SCH ×2 (00:31→10:51)
[2021-03-26 01:25] LABS: Urine Appearance CLEAR (Clear); Urine Bilirubin NEGATIVE (Negative); Urine Blood NEGATIVE (Negative); Urine Color YELLOW (Yellow); Urine Glucose NEGATIVE (Negative); Urine Microscopic Reflex NO UMIC; Urine Protein NEGATIVE (Negative); Urine Specific Gravity 1.025 (1.005-1.030); Urine Urobilinogen 0.2 mg/dL (0.2-1.0); Urine pH 5.5 (5.0-7.0)
[2021-03-26 04:47] LABS: Absolute Lymphocytes (CBC) 1.5 K/uL (0.7-4.9); Hematocrit 40.6 % (39.6-49.0); Lymphocytes % 24.4 % (15.3-44.8); MPV 8.4 fL (7.6-11.3); RBC Red Blood Cell Count 4.62 M/uL (4.33-5.43)
[2021-03-26 05:09] LABS: ALT/SGPT 40 U/L (12-78); AST/SGOT 22 U/L (15-37); Albumin 2.9 g/dL (3.4-5.0); Alkaline Phosphatase 63 U/L (45-117); BUN Blood Urea Nitrogen 11 mg/dL (7-18); Bicarbonate 27 mmol/L (21-32); Bilirubin Total 0.5 mg/dL (0.2-1.0); Glucose Level 119 mg/dL (74-106); Potassium 3.6 mmol/L (3.5-5.1); Protein, Total 6.6 g/dL (6.4-8.2); Sodium Level 142 mmol/L (136-145)
[2021-03-26] MEDS ORDERED: POTASSIUM CL SA 10 MEQ TAB PO ONE ×2 (08:54→09:00)
[2021-03-26] MEDS: ENOXAPARIN 40 MG/0.4 ML SQ SCH (08:57)
[2021-03-26] MEDS: VANCOMYCIN 2 GM in NA CHLORIDE 0.9% 500 ML IVPB SCH (09:00)
[2021-03-26] MEDS ORDERED: levoFLOXacin 750 MG TAB PO SCH (09:00)
[2021-03-26] MEDS: lisinopriL 10 MG TAB PO SCH (09:00)
[2021-03-26] MEDS ORDERED: Levofloxacin 750mg IV 750 MG/150 ML BAG IV SCH (09:00)
[2021-03-26] MEDS: HYDROCODONE/APAP 5/325 MG TAB PO PRN (10:48)
[2021-03-26] MEDS ORDERED: HYDROCORTISONE SUC 100 MG INJ IV ONE (14:47)
[2021-03-26 16:50] VITALS: BP 121/56; TEMP 97.9
--- NOTE | 2021-04-02 01:06 | P.DS ---
Discharge Date: 03/26/21 Primary Care Provider: Unknown Disposition: ROUTINE DISCHARGE Discharge Condition: GOOD Reason for Admission: Cellulitis right lower extremity Brief History of Present Illness: 25-year-old male with history of hypertension, morbid obesity presents emergency department for right lower extremity redness, fever. Patient reports symptoms began 2 days ago, does have a history of psoriasis as well. Patient is on immunologic therapy for psoriasis. Patient was evaluated in the emergency department labs were significant for white blood cell count 13.2 with left shift glucose 156 Covid negative DVT negative right lower extremity. Patient with significant cellulitis, tachycardia, fever and on immunologic therapy, will admit for further evaluation and management. Hospital Course: Patient was found to have cellulitis. Patient was given IV antibiotics. Patient clinical symptoms have improved quickly. Patient is feeling much better. Patient's cellulitis is improved. At this time, patient is doing much better and is stable for discharge home. Vital Signs/Physical Exam: Temp Pulse Resp BP Pulse Ox 97.9 F 56 16 121/56 L 98 03/26/21 16:00 03/26/21 16:00 03/26/21 16:00 03/26/21 16:00 03/26/21 16:00 General: Alert, In no apparent distress, Oriented x3 Laboratory Data at Discharge: WBC 6.30 K/uL (4.3-10.9) D 03/26/21 04:36 Hgb 13.5 g/dL (13.6-17.9) L 03/26/21 04:36 Hct 40.6 % (39.6-49.0) 03/26/21 04:36 Plt Count 206 K/uL (152-406) 03/26/21 04:36 PT 14.4 SECONDS (9.5-12.5) H 03/24/21 23:26 INR 1.25 03/24/21 23:26 APTT 33.6 SECONDS (24.3-36.9) 03/24/21 23:26 Sodium 142 mmol/L (136-145) 03/26/21 04:36 Potassium 4.3 mmol/L (3.5-5.1) 03/26/21 14:45 BUN 11 mg/dL (7-18) 03/26/21 04:36 Creatinine 0.70 mg/dL (0.55-1.3) 03/26/21 04:36 Glucose 119 mg/dL (74-106) H 03/26/21 04:36 Total Bilirubin 0.5 mg/dL (0.2-1.0) 03/26/21 04:36 AST 22 U/L (15-37) 03/26/21 04:36 ALT 40 U/L (12-78) 03/26/21 04:36 Alkaline Phosphatase 63 U/L (45-117) 03/26/21 04:36 Triglycerides 85 mg/dL (<150) 03/25/21 06:15 Cholesterol 148 mg/dL (<200) 03/25/21 06:15 HDL Cholesterol 30 mg/dL (40-60) L 03/25/21 06:15 Cholesterol/HDL Ratio 4.93 03/25/21 06:15 Amylase 19 U/L (25-115) L 03/24/21 23:26 Lipase 52 U/L (73-393) L 03/24/21 23:26 Home Medications: Hydrocodone 5/APAP 325 [[place] 5/325*] 1 tab PO Q6H PRN #30 tab 03/26/21 Sulfamethoxazole/Trimethoprim [Bactrim Ds Tablet] 1 each PO BID #14 tablet 03/26/21 levoFLOXacin [Levaquin*] 750 mg PO DAILY #7 tab 03/26/21 lisinopriL [Prinivil*] 10 mg PO DAILY #30 tab 03/26/21 New Medications: Sulfamethoxazole/Trimethoprim [Bactrim Ds Tablet] 1 each PO BID #14 tablet levoFLOXacin [Levaquin*] 750 mg PO DAILY #7 tab Hydrocodone 5/APAP 325 [[place] 5/325*] 1 tab PO Q6H PRN #30 tab PRN Reason: Pain Scale 5-7 (Moderate) lisinopriL [Prinivil*] 10 mg PO DAILY #30 tab Physician Discharge Instructions: OK TO DC IV AND DC HOME FOLLOW-UP WITH PRIMARY CARE PROVIDER IN 1-2 WEEKS RETURN TO THE ER IF symptoms worsen CALL or TEXT DR. KURTZ AT [phone] IF ANY QUESTIONS REGARDING HOSPITAL STAY. PLEASE CALL THE FLOOR AT [phone] IF ANY MEDICATION OR NURSING QUESTIONS. Diet: Regular Activity: Fall precautions Followup: NONE,NONE [Primary Care Provider] - Time spent managing pt's care (in minutes): 35
== END 2021-03-26 18:47 | disposition home or self-care (01) | DRG 872 ==
LOC: ER 22:52 → ERHOLD 03-25 00:46 → 4TH 03-25 13:47
PROVIDERS: ADMIT Family Medicine; ATTEND Family Medicine
DX: A41.9 Sepsis, unspecified organism (principal); L03.115 Cellulitis of right lower limb; Z68.44 Body mass index [BMI] 60.0-69.9, adult; I10 Essential (primary) hypertension; E66.01 Morbid (severe) obesity due to excess calories; R73.03 Prediabetes; L40.9 Psoriasis, unspecified; R73.9 Hyperglycemia, unspecified; Z20.822 Contact with and (suspected) exposure to COVID-19
CPT/HCPCS: 36415; 71045; 80048; 80053; 80061; 80076; 80202; 81003; 82150; 82550; 82553; 82947; 83036; 83605; 83690; 84132; 84145; 84439; 84443; 84484; 85025; 85610; 85730; 87040; 87070; 87081; 87804; 93005; 93971; 94010; 96366; 96375; 99284; J0692; J1650; J1720; J3370; J7030; J7040; U0003

== ENCOUNTER 2024-05-11 23:59 | Emergency (ER) | payer SELFPAY ==
[2024-05-12 00:51] LABS: SARS-CoV-2 Antigen CONTROL BLUE LINE VIS/BG OK; SARS-CoV-2 Antigen Rapid Res Negative (Negative)
--- NOTE | 2024-05-12 00:55 | ER ---
Nurse's Notes [facility] Name: Zack Nielsen Jr Age: 28 yrs Sex: Male : 1995 Arrival Date: 05/11/2024 Time: 23:59 Bed IW1 Private MD: Diagnosis: Acute upper respiratory infection, unspecified Presentation: 05/12 00:13 Chief complaint: Patient states: fever, chills, mucus, coughing, sore throat since vc1 friday. Coronavirus screen: Client denies travel out of the [place] in the last 14 days. chills, congestion, cough unrelated to allergies, fever, sore throat, Client presents with at least one sign or symptom that may indicate coronavirus-19. Ebola Screen: Patient negative for fever greater than or equal to 101.5 degrees Fahrenheit, and additional compatible Ebola Virus Disease symptoms Patient denies exposure to infectious person. Patient denies travel to an Ebola-affected area in the 21 days before illness onset. No symptoms or risks identified at this time. Initial Sepsis Screen: Does the patient meet any 2 criteria? RR > 20 per min. No. Patient's initial sepsis screen is negative. Does the patient have a suspected source of infection? No. Patient's initial sepsis screen is negative. Risk Assessment: Do you want to hurt yourself or someone else? Patient reports no desire to harm self or others. Onset of symptoms was May 09, 2024. 00:13 Method Of Arrival: Ambulatory vc1 00:13 Acuity: PATRICIA 4 vc1 Triage Assessment: 00:06 General: Appears in no apparent distress. uncomfortable, obese, well developed, well vc1 nourished, Behavior is calm, cooperative, appropriate for age. General: Reports chills for fever for feeling ill for 2-3 days. Pain: Complains of pain in throat. EENT: Reports nasal congestion pain when swallowing. Neuro: Level of Consciousness is awake, alert, obeys commands, Oriented to person, place, time, situation, Appropriate for age. Cardiovascular: Heart tones S1 S2 present Capillary refill < 3 seconds Patient's skin is warm and dry. Rhythm is regular. Respiratory: Airway is patent Respiratory effort is even, unlabored, Respiratory pattern is regular, symmetrical, Breath sounds are clear bilaterally. GI: Abdomen is non-distended, obese. : No deficits noted. No signs and/or symptoms were reported regarding the genitourinary system. Derm: Skin is intact, is healthy with good turgor, Skin is dry, Skin is normal, Skin temperature is warm. Musculoskeletal: Circulation, motion, and sensation intact. Range of motion: intact in all extremities. Historical: - Allergies: 00:14 No Known Allergies; vc1 - PMHx: 00:14 Hypertensive disorder; psoriasis; vc1 - PSHx: 00:14 None; vc1 - Immunization history:: Client reports having NOT received the Covid vaccine. Flu vaccine is not up to date. - Infectious Disease History:: Denies. - Social history:: Smoking status: Patient denies any tobacco usage or history of. Screenin:06 Abuse screen: Denies threats or abuse. Nutritional screening: No deficits noted. vc1 Tuberculosis screening: No symptoms or risk factors identified. 00:06 [facility] ED Fall Risk Assessment (Adult) History of falling in the last 3 months, vc1 including since admission No falls in past 3 months (0 pts) Confusion or Disorientation No (0 pts) Intoxicated or Sedated No (0 pts) Impaired Gait No (0 pts) Mobility Assist Device Used No (0 pt) Altered Elimination No (0 pt) Score/Fall Risk Level 0 - 2 = Low Risk Oriented to surroundings, Maintained a safe environment, Educated pt \T\ family on fall prevention, incl call for assistance when getting out of bed. Assessment: 01:13 Reassessment: No changes from previously documented assessment. Patient and/or family vc1 updated on plan of care and expected duration. Pain level reassessed. Cardiovascular: Heart tones S1 S2 present Capillary refill < 3 seconds Patient's skin is warm and dry. Respiratory: Reports cough that is Airway is patent Respiratory effort is even, unlabored, Respiratory pattern is regular, symmetrical, Breath sounds are clear bilaterally. Vital Signs: 00:13 BP 156 / 79; Pulse 88; Resp 22; Temp 98.2; Pulse Ox 96% ; Weight 217.72 kg; Height 6 vc1 ft. 0 in. ; Pain 5/10; 01:13 BP 150 / 77; Pulse 90; Resp 20; Pulse Ox 97% ; vc1 00:13 Body Mass Index 65.10 (217.72 kg, 182.88 cm) vc1 00:13 Pain Scale: Adult vc1 ED Course: 00:01 Patient arrived in ED. jj6 00:05 [facility]C [facility] gino 00:05 Juan Zuniga MD is Attending Physician. kb 00:14 Triage completed. vc1 00:15 Arm band placed on right wrist. vc1 00:15 placed in lobby. vc1 00:15 Provided Education on: treat symptoms. vc1 00:15 Strep Sent. vc1 00:15 SARS-COV-2 Antigen Rapid Sent. vc1 00:15 Flu Sent. vc1 01:09 Nicole Winchester, KE is Primary Nurse. vc1 01:10 No provider procedures requiring assistance completed. Patient did not have IV access vc1 during this emergency room visit. Administered Medications: No medications were administered Medication: 01:10 VIS not applicable for this client. vc1 Outcome: 00:55 Discharge ordered by . kb 01:11 Discharged to home ambulatory, vc1 01:11 Condition: good 01:11 Discharge instructions given to patient, Instructed on discharge instructions, follow up and referral plans. medication usage, Demonstrated understanding of instructions, follow-up care, medications, Prescriptions given X 1, 01:14 Patient left the ED. vc1 Signatures: Tosha Wei FNP-C FNP-Georgie Rebollar jj6 Nicole Winchester, RN RN vc1
--- NOTE | 2024-05-12 00:55 | EDPHYS ---
Physician Documentation [facility] Name: Zack Nielsen Jr Age: 28 yrs Sex: Male : 1995 Arrival Date: 05/11/2024 Time: 23:59 Bed IW1 Private MD: ED Physician Juan Zuniga HPI: 05/12 00:42 This 28 yrs old Male presents to ER via Ambulatory with complaints of Fever, kb Cough, Congestion. 00:42 Patient is a 28-year-old male who presents for fever, chills, cough, congestion, sore kb throat that started 3 days ago. States he believes he has the flu but his employer is going to want a note for him to miss work. Denies any aggravating or alleviating factors. Denies fever.. Historical: - Allergies: 00:14 No Known Allergies; vc1 - PMHx: 00:14 Hypertensive disorder; psoriasis; vc1 - PSHx: 00:14 None; vc1 - Immunization history:: Client reports having NOT received the Covid vaccine. Flu vaccine is not up to date. - Infectious Disease History:: Denies. - Social history:: Smoking status: Patient denies any tobacco usage or history of. ROS: 00:43 Constitutional: As per HPI kb Exam: 00:43 Constitutional: This is a well developed, well nourished patient who is awake, alert, kb and in no acute distress. Head/Face: Normocephalic, atraumatic. ENT: Moist Mucous membranes Cardiovascular: Regular rate Respiratory: Respirations even and unlabored. No increased work of breathing. Talking in full sentences Abdomen/GI: Soft, non-tender. No distention Skin: Warm, dry with normal turgor. Normal color. MS/ Extremity: Pulses equal, no cyanosis. Neurovascular intact. Full, normal range of motion. Neuro: Awake and alert, GCS 15, oriented to person, place, time, and situation. Vital Signs: 00:13 BP 156 / 79; Pulse 88; Resp 22; Temp 98.2; Pulse Ox 96% ; Weight 217.72 kg; Height 6 vc1 ft. 0 in. ; Pain 5/10; 01:13 BP 150 / 77; Pulse 90; Resp 20; Pulse Ox 97% ; vc1 00:13 Body Mass Index 65.10 (217.72 kg, 182.88 cm) vc1 00:13 Pain Scale: Adult vc1 MDM: 00:05 Medical Screening Exam initiated 00:43 Differential diagnosis: flu, covid, strep. Data reviewed: vital signs, nurses notes. kb 00:54 I considered the following discharge prescriptions or medication management in the emergency department I discussed and recommended Over The Counter medications, Antibiotics: At this time antibiotics are not recommended, Antivirals: At this time, antivirals are not recommended. Counseling: I had a detailed discussion with the patient and/or guardian regarding the historical points, exam findings, and any diagnostic results supporting the discharge/admit diagnosis, lab results, the need for outpatient follow up, a family practitioner, to return to the emergency department if symptoms worsen or persist or if there are any questions or concerns that arise at home. 05/12 00:08 Order name: Flu; Complete Time: 00:54 kb 05/12 00:08 Order name: SARS-COV-2 Antigen Rapid; Complete Time: 00:54 05/12 00:08 Order name: Strep 05/12 00:53 Order name: Throat Culture EDMS Administered Medications: No medications were administered Disposition: 07:50 Co-signature as Attending Physician, Juan Zuniga MD I agree with the assessment sp4 and plan of care. I reviewed the patient's care provided by the Advanced Practice Provider and agree with the diagnosis and treatment plan. Disposition Summary: 05/12/24 00:55 Discharge Ordered Notes: Location: Home Condition: Stable Diagnosis - Acute upper respiratory infection, unspecified Followup: kb - With: Emergency Department - When: As needed - Reason: Worsening of condition Followup: kb - With: Private Physician - When: 2 - 3 days - Reason: Recheck today's complaints, Continuance of care, Re-evaluation by your physician Discharge Instructions: - Discharge Summary Sheet kb - Upper Respiratory Infection, Adult, [id number] kb - Viral Respiratory Infection, [id number] kb Forms: - Work release form kb - Medication Reconciliation Form kb - Antibiotic Education kb - Prescription Opioid Use kb - Patient Portal Instructions kb - Leadership Thank You Letter kb Prescriptions: - Tessalon Perles 100 mg Oral Capsule - take 1 capsule ORAL route every 8 hours As needed; 15 capsule; Refills: 0, kb Product Selection Permitted Signatures: Dispatcher [employer] Tosha Willett, PBX SUPERVISOR-C PBX SUPERVISOR-Ckb Nicole Winchester, RN RN vc1 Juan Zuniga MD MD sp4
[2024-05-12 07:40] VITALS: TEMP 98.2
[2024-05-12 07:42] VITALS: BP 150/77; O2SAT 97
== END 2024-05-12 01:14 | disposition home or self-care (01) ==
LOC: ER 23:59
DX: J06.9 Acute upper respiratory infection, unspecified (principal); Z11.52 Encounter for screening for COVID-19
CPT/HCPCS: 36415; 87070; 87081; 87804; 87811; 99283

== ENCOUNTER 2024-06-01 22:03 | Emergency (ER) | payer SELFPAY ==
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
--- NOTE | 2024-06-01 22:42 | ER ---
Nurse's Notes [facility] Name: Fabio Oneal Age: 28 yrs Sex: Male : 1995 Arrival Date: 06/01/2024 Time: 22:03 Bed 13 Private MD: Diagnosis: Cellulitis of left lower limb Presentation: 06/01 22:28 Chief complaint: Patient states: OPEN SKIN ABRASION ON LEFT VANG/LOWER LEG, PAIN LEVEL kj2 3-4. LEG SWOLLEN TO AREA. Coronavirus screen: Client denies travel out of the [place] in the last 14 days. Ebola Screen: No symptoms or risks identified at this time. Initial Sepsis Screen: Does the patient meet any 2 criteria? No. Patient's initial sepsis screen is negative. Does the patient have a suspected source of infection? No. Patient's initial sepsis screen is negative. Risk Assessment: Do you want to hurt yourself or someone else? Patient reports no desire to harm self or others. Onset of symptoms was May 27, 2024. 22:28 Method Of Arrival: Ambulatory kj2 22:28 Acuity: PATRICIA 3 kj2 Triage Assessment: 22:34 General: Appears in no apparent distress. Behavior is calm, cooperative. Pain: kj2 Complains of pain in left leg Pain currently is 4 out of 10 on a pain scale. Historical: - Allergies: 22:32 No Known Allergies; kj2 - Home Meds: 22:31 talze [Active]; kj2 - PMHx: 22:31 Hypertensive disorder; psoriasis; kj2 - Immunization history:: Adult Immunizations unknown. - Infectious Disease History:: Denies. - Social history:: Smoking status: Patient denies any tobacco usage or history of. Screenin:32 [facility] ED Fall Risk Assessment (Adult) History of falling in the last 3 months, kj2 including since admission No falls in past 3 months (0 pts) Confusion or Disorientation No (0 pts) Intoxicated or Sedated No (0 pts) Impaired Gait No (0 pts) Mobility Assist Device Used No (0 pt) Altered Elimination No (0 pt) Score/Fall Risk Level 0 - 2 = Low Risk Maintained a safe environment, Hourly rounding (assess needs \T\ fall precautionary measures) done. Abuse screen: Denies threats or abuse. Denies injuries from another. Nutritional screening: No deficits noted. Tuberculosis screening: No symptoms or risk factors identified. Assessment: 22:32 General: SEE TRIAGE ASSESSMENT. kj2 22:57 Reassessment: Patient appears in no apparent distress at this time. Patient and/or kj2 family updated on plan of care and expected duration. Pain level reassessed. Patient is alert, oriented x 3, equal unlabored respirations, skin warm/dry/pink. Vital Signs: 22:28 BP 143 / 73; Pulse 83; Resp 20; Temp 98; Pulse Ox 98% on R/A; Weight 217.72 kg; Height kj2 6 ft. 0 in. ; Pain 4/10; 22:57 BP 142 / 71; Pulse 78; Resp 20; Temp 98; Pulse Ox 97% on R/A; kj2 22:28 Body Mass Index 65.10 (217.72 kg, 182.88 cm) kj2 22:28 Pain Scale: Adult kj2 ED Course: 22:00 Arm band placed on Patient placed in an exam room. kj2 22:06 Patient arrived in ED. mr 22:06 Heather Crowder PA-C is PHCP. sb4 22:06 Juan Zuniga MD is Attending Physician. sb4 22:18 Anya Bach RN is Primary Nurse. kj2 22:31 Triage completed. kj2 22:33 Patient has correct armband on for positive identification. Bed in low position. Call kj2 light in reach. Side rails up X 1. Provided Education on: CALL LIGHT. 22:58 No provider procedures requiring assistance completed. Patient did not have IV access kj2 during this emergency room visit. Administered Medications: 22:50 CANCELLED (Physician Discretion): trimethoprim-sulfamethoxazole(160 mg-800 mg (ds) 1 sb4 tablet PO once 22:56 Drug: Trimethoprim-Sulfamethoxazole PO (160 mg-800 mg (DS) 1 tablet PO once Route: PO; kj2 22:58 Follow up: Response: No adverse reaction; Medication administered at discharge. kj2 Medication: 22:58 VIS not applicable for this client. kj2 Outcome: 22:42 Discharge ordered by . sb4 22:58 Discharged to home kj2 22:58 Condition: stable 22:58 Discharge instructions given to patient, Instructed on discharge instructions, follow up and referral plans. medication usage, Demonstrated understanding of instructions, follow-up care, medications, Prescriptions given X 22:59 Patient left the ED. kj2 Signatures: Valentina Roberto Reg Reg mr Brown, Sophia, PARuth PARuth sb4 Anya Bach, RN RN kj2
[2024-06-01] MEDS ORDERED: SMZ./TMP. 800/160 MG TABLET ONE (22:52)
[2024-06-01 23:24] VITALS: TEMP 98
[2024-06-01 23:25] VITALS: BP 142/71; O2SAT 97
== END 2024-06-01 22:59 | disposition home or self-care (01) ==
LOC: ER 22:03
DX: L03.116 Cellulitis of left lower limb (principal); I10 Essential (primary) hypertension
CPT/HCPCS: 99283